=== PATIENT | female | born 1980 | race Caucasian/White ===

== ENCOUNTER 2021-10-30 15:17 | Outpatient (CLI) | payer OTHER | END 2021-10-30 15:18 | disposition home or self-care (01) | LOC: CSHMAMMO 15:17 | DX: Z12.31 Encounter for screening mammogram for malignant neoplasm of breast (principal) | CPT/HCPCS: 77063; 77067 ==

== ENCOUNTER 2024-08-13 11:27 | Outpatient (CLI) | payer BC | END 2024-08-13 11:28 | disposition home or self-care (01) | LOC: CSHMAMMO 11:27 | PROVIDERS: ATTEND Nurse Practitioner Family | DX: Z12.31 Encounter for screening mammogram for malignant neoplasm of breast (principal); N64.89 Other specified disorders of breast | CPT/HCPCS: 77063; 77067; G0279 ==

== ENCOUNTER 2025-09-18 12:20 | Outpatient (CLI) | payer BC | END 2025-09-18 12:21 | disposition home or self-care (01) | LOC: CSHMAMMO 12:20 | PROVIDERS: ATTEND Nurse Practitioner Family | DX: Z12.31 Encounter for screening mammogram for malignant neoplasm of breast (principal) | CPT/HCPCS: 77063; 77067 ==